=== PATIENT | male | born 1980 | race Two or more races ===

== ENCOUNTER 2021-01-22 12:11 | Emergency (ER) | payer OTHER ==
[~2021-01-22] VITALS: Ht 188 cm; Wt 113.4 kg
[2021-01-22 13:47] VITALS: BP 142/95
[2021-01-22 14:41] LABS: Alcohol, Urine < 3.0 mg/dL (0-10); Amphetamine Screen, Urine NEGATIVE (NEGATIVE); Barbiturate Scree,Urine NEGATIVE (NEGATIVE); Benzodiazephine Screen, Urine NEGATIVE (NEGATIVE); Cannabinoid Screen, Urine NEGATIVE (NEGATIVE); Cocaine Screen, Urine NEGATIVE (NEGATIVE); Opiate Scree,Urine NEGATIVE (NEGATIVE); Phencyclidine Screen, Urine NEGATIVE (NEGATIVE)
== END 2021-01-22 15:09 | disposition home or self-care (01) ==
LOC: ER 12:11
DX: Z04.1 Encounter for examination and observation following transport accident (principal); V59.9XXA Occupant (driver) (passenger) of pick-up truck or van injured in unspecified traffic accident, initial encounter; Y93.89 Activity, other specified; Y92.89 Other specified places as the place of occurrence of the external cause; Y99.8 Other external cause status
CPT/HCPCS: 80307